=== PATIENT | female | born 1960 | race Hispanic/Latino ===

== ENCOUNTER → 2018-06-10 | Outpatient (CLI) | payer OTHER | LOC: YCFC.O 09:01 | PROVIDERS: ATTEND Nurse Practitioner Family | DX: Z13.220 Encounter for screening for lipoid disorders (principal) ==

== ENCOUNTER → 2019-08-02 | Outpatient (CLI) | payer OTHER ==
--- NOTE | 2019-08-03 08:21 | RAD ---
EXAM DESCRIPTION: Chest,2 Views CLINICAL HISTORY: DYSPNEA COMPARISON: None TECHNIQUE: PA/lateral FINDINGS: Heart size is normal with normal pulmonary vascularity. No pleural effusion or pneumothorax. Lungs are clear with no consolidating infiltrate evident on the frontal view. Lateral view shows intact sternum and T-spine. Patchy atelectasis along the posterior aspect of the cardiac silhouette on the lateral view. This could be followed. IMPRESSION: No consolidating infiltrate. Electronically signed by: Roger Gordon MD 08/03/2019 8:20 AM [facility]
== END ==
LOC: RAD 15:40
PROVIDERS: ATTEND Family Medicine
DX: R06.00 Dyspnea, unspecified (principal)

== ENCOUNTER → 2019-08-03 | Outpatient (CLI) | payer OTHER | LOC: LAB.O 07:58 | PROVIDERS: ATTEND Family Medicine | DX: I10 Essential (primary) hypertension (principal); Z13.220 Encounter for screening for lipoid disorders ==